=== PATIENT | female | born 1945 | race Caucasian/White ===

== ENCOUNTER 2025-07-20 08:24 | Outpatient (AMB) | payer MEDICARE, SELFPAY ==
--- OUTSIDE RECORDS SUMMARY | 2025-07-20 08:47 | XMS_ITS | Patient Health Record ---
[facility] Address [address] [place] [address] Care Team Providers Care Tank Farm Gauger Name Role Phone Julia Paulina Primary Care Provider Candice Estrada Unavailable [phone] Allergies Allergen (clinical drug ingredient) Drug/Non Drug Allergy documented on EMR Reaction Allergy Type Onset Date Status ciprofloxacin Cipro joint pain Drug Allergy Ac tive Levaquin joint pain Drug Allergy Active codeine Codeine itching Drug Allergy Active formaldehyde Formaldehyde Unknown Drug Allergy A ctive nickel Nickel rash Allergy Active Reason For Referral No Information Medications Medication SIG (Take, Route, Frequency, Duration) Notes Start Date End Date Status Aspirin 81 MG 1 tablet Orally Once a day; Duration: 30 day(s) Not-Taking Desonide 0.05 % 1 application Externally Twice a day Active Calcium + D Active Fish Oil 1200 MG 1 capsule Orally Onc e a day; Duration: 30 day(s) Active Centrum Silver - as directed Orally Active Lori Active Risedronate Sodium 35 MG [address] 30 minutes before the first food or drink, other than water, of the day Orally; Duration: 30 day(s) Active Breo Ellipta 100-25 MCG/INH 1 puff Inhalation Once a day Active Montelukast Sodium 10 MG 1 tablet Orally Once a day; Duration: 30 day(s) Active Atorvastatin Calcium 20 MG 1 tablet Orally Once a day; Duration: 30 day(s) Active Immunizations Vaccine Route Administration Date Status Comme nts COVID-19 Moderna Vaccine Unknown 09/19/2021 Administered First Dose:01/18/2021 Second Dose:02/15/2021 Influenza Unknown 08/05/2021 Administered Social History Tobacco Use: Social History Observation Description Date Details (start date - stop date) Never Smoker NA - NA Tobacco Use/Smoking Question Answer Notes Are you a: nonsmoker Additional Findings: Tobacco Non-User Current no n-smoker Alcohol Screen Question Answer Notes Did you have a drink contain ing alcohol in the past year? Yes How often did you have a dri nk containing alcohol in the past year? Monthly or less (1 point) Points 1 Interpretation Negative Tobacco use other than smoking: Question Answer Notes Are you an other tobacco user? No Plan Of Treatment No Information Insurance Providers Payer Name Payer Address Payer Phone Subscriber Number Group Number Insured Name Patient Relationship to Insured Coverage Start Date Coverage End Date [employer] Medicare [id number] [address] [address] [place] [address] [id number] Anita Coulter Self - patient is the insured Medical (General) History Medical History History ICD Code asthma Back,Hip,and Knee pain Broken bones Cholesterol Cataracts covid-19 Glaucoma Osteoporosis chronic sinusitis Measles Mumps Chicken pox Bone implants/screws cutaneous mycobacterium disc herniation Surgical History Surgery Date(Month/Year) back surgery 12/24/20 left knee replacement 10/29/2017 TLFT [id number] Surgery 10/24/21 cyst removed left ring finger 08/12/2020 right knee replacement 05/13/18 thumb surgery 03/28/18,04/28/21 left knee scope 07/19/11 right knee scope 01/03/10 cataract surgery 05/05,06/04 [place] Neuroma Surgery 08/03 colonoscopy 11/06/18 Cryosurgery 03/17/02 tubal ligation , tonsillectomy 1957 Bone spurs both heels 1962
== END 2025-07-20 12:48 | disposition home or self-care (01) ==
LOC: HO.HMGAL 08:24
PROVIDERS: PCP Internal Medicine; Visit Provider Registered Nurse Emergency
DX: J30.89 Other allergic rhinitis (principal)
CPT/HCPCS: 95117; 95165

== ENCOUNTER 2025-07-29 08:21 | Outpatient (AMB) | payer MEDICARE, SELFPAY ==
--- OUTSIDE RECORDS SUMMARY | 2025-07-29 08:45 | XMS_ITS | Patient Health Record ---
[facility] Address [address] [place] [address] Care Team Providers Care Manager Car Name Role Phone Julia Paulina Primary Care Provider Candice Estrada Unavailable [phone] Allergies Allergen (clinical drug ingredient) Drug/Non Drug [...] Vaccine Route Administration Date Status Comme nts Influenza Unknown 08/05/2021 Administered COVID-19 Moderna Vaccine Unknown 09/19/2021 Administered First Dose:01/18/2021 Second Dose:02/15/2021 Social History Tobacco Use: Social History Observation [...] Date Coverage End Date [employer] Medicare Adv-[id number] [address] [address] [place] [address] [id number] Anita Coulter Self - patient is the [...]
== END 2025-07-29 08:31 | disposition home or self-care (01) ==
PROVIDERS: PCP Internal Medicine; Visit Provider Registered Nurse Emergency
DX: J30.89 Other allergic rhinitis (principal)
CPT/HCPCS: 95117; 95165

== ENCOUNTER 2025-08-03 08:28 | Outpatient (AMB) | payer MEDICARE, SELFPAY ==
--- OUTSIDE RECORDS SUMMARY | 2025-08-03 09:25 | XMS_ITS | Patient Health Record ---
[facility] Address [address] [place] [address] Care Team Providers Care Clinical Genetics Laboratory Chief Name Role Phone Julia Paulina Primary Care Provider Candice Estrada Unavailable [phone] Allergies Allergen (clinical drug ingredient) Drug/Non Drug [...] Date Coverage End Date [employer] Medicare Adv-[id number] [address] [address] [place] [address] [id number] Anita Coulter Self - patient is the [...]
== END 2025-08-03 08:35 | disposition home or self-care (01) ==
LOC: HO.HMGAL 08:28
PROVIDERS: PCP Internal Medicine; Visit Provider Registered Nurse Emergency
DX: J30.89 Other allergic rhinitis (principal)
CPT/HCPCS: 95117; 95165

== ENCOUNTER 2025-08-10 09:21 | Outpatient (AMB) | payer MEDICARE, SELFPAY ==
--- OUTSIDE RECORDS SUMMARY | 2025-08-10 11:04 | XMS_ITS | Patient Health Record ---
[facility] Address [address] [place] [address] Care Team Providers Care Molder Hand Name Role Phone Julia Paulina Primary Care Provider Candice Estrada Unavailable [phone] Allergies Allergen (clinical drug ingredient) Drug/Non Drug [...] Date Coverage End Date [employer] Medicare Adv-[id number] [address] [address] [place] [address] [id number] Anita Coulter Self - patient is the [...]
== END 2025-08-10 09:58 | disposition home or self-care (01) ==
LOC: HO.HMGAL 09:21
PROVIDERS: PCP Internal Medicine; Visit Provider Registered Nurse Emergency
DX: J30.89 Other allergic rhinitis (principal)
CPT/HCPCS: 95117; 95165

== ENCOUNTER 2025-08-31 08:27 | Outpatient (AMB) | payer MEDICARE, SELFPAY ==
--- OUTSIDE RECORDS SUMMARY | 2025-08-31 08:56 | XMS_ITS | Patient Health Record ---
Author Organization [facility] Address [address] [place] [address] Care Team Providers Care Studio Musician Name Role Phone Julia Paulina Primary Care Provider Cadnice Estrada Unavailable [phone] Allergies Allergen (clinical drug ingredient) Drug/Non Drug [...] Date Coverage End Date [employer] Medicare Adv-[id number] [address] [address] [place] [address] [id number] Anita Coulter Self - patient is the [...]
== END 2025-08-31 09:05 | disposition home or self-care (01) ==
LOC: HO.HMGAL 08:27
PROVIDERS: PCP Internal Medicine; Visit Provider Registered Nurse Emergency
DX: J30.89 Other allergic rhinitis (principal)
CPT/HCPCS: 95117; 95165

== ENCOUNTER 2025-09-14 08:16 | Outpatient (AMB) | payer MEDICARE, SELFPAY | END 2025-09-14 08:21 | disposition home or self-care (01) | LOC: HO.HMGAL 08:16 | PROVIDERS: PCP Internal Medicine; Visit Provider Registered Nurse Emergency | DX: J30.89 Other allergic rhinitis (principal) | CPT/HCPCS: 95117; 95165 ==

== ENCOUNTER 2025-09-21 08:49 | Outpatient (AMB) | payer MEDICARE, SELFPAY | END 2025-09-21 08:50 | disposition home or self-care (01) | LOC: HO.HMGAL 08:49 | PROVIDERS: PCP Internal Medicine; Visit Provider Registered Nurse Emergency | DX: J30.89 Other allergic rhinitis (principal) | CPT/HCPCS: 95117; 95165 ==

== ENCOUNTER 2025-09-28 08:19 | Outpatient (AMB) | payer MEDICARE, SELFPAY ==
--- OUTSIDE RECORDS SUMMARY | 2025-09-28 08:34 | XMS_ITS | Patient Health Record ---
[facility] Address [address] [place] [address] Care Team Providers Care Log Haul Chain Feeder Name Role Phone Julia Paulina Primary Care Provider Candice Estrada Unavailable [phone] Allergies Allergen (clinical drug ingredient) Drug/Non Drug [...] Date Coverage End Date [employer] Medicare Adv-[id number] [address] [address] [place] [address] [id number] Anita Coulter Self - patient is the [...]
== END 2025-09-28 08:31 | disposition home or self-care (01) ==
LOC: HO.HMGAL 08:19
PROVIDERS: PCP Internal Medicine; Visit Provider Registered Nurse Emergency
DX: J30.89 Other allergic rhinitis (principal)
CPT/HCPCS: 95117; 95165

== ENCOUNTER 2025-10-05 08:24 | Outpatient (AMB) | payer MEDICARE, SELFPAY ==
--- OUTSIDE RECORDS SUMMARY | 2025-10-05 08:45 | XMS_ITS | Patient Health Record ---
[facility] Address [address] [place] [address] Care Team Providers Care Hydrologic Engineer Name Role Phone Julia Paulina Primary Care Provider Candice Estrada Unavailable [phone] Allergies Allergen (clinical drug ingredient) Drug/Non Drug [...] Date Coverage End Date [employer] Medicare Adv-[id number] [address] [address] [place] [address] [id number] Anita Coulter Self - patient is the [...]
== END 2025-10-05 08:25 | disposition home or self-care (01) ==
LOC: HO.HMGAL 08:24
PROVIDERS: PCP Internal Medicine; Visit Provider Registered Nurse Emergency
DX: J30.89 Other allergic rhinitis (principal)
CPT/HCPCS: 95117; 95165

== ENCOUNTER 2025-10-12 08:25 | Outpatient (AMB) | payer MEDICARE, SELFPAY | END 2025-10-12 08:26 | disposition home or self-care (01) | LOC: HO.HMGAL 08:25 | PROVIDERS: PCP Internal Medicine; Visit Provider Registered Nurse Emergency | DX: J30.89 Other allergic rhinitis (principal) | CPT/HCPCS: 95117; 95165 ==

== ENCOUNTER 2025-10-19 08:28 | Outpatient (AMB) | payer MEDICARE, SELFPAY ==
--- OUTSIDE RECORDS SUMMARY | 2025-10-19 08:35 | XMS_ITS | Patient Health Record ---
[facility] Address [address] [place] [address] Care Team Providers Care Hot Mill Roller Name Role Phone Julia Paulina Primary Care Provider Candice Estrada Unavailable [phone] Allergies Allergen (clinical drug ingredient) Drug/Non Drug [...] Date Coverage End Date [employer] Medicare Adv-[id number] [address] [address] [place] [address] [id number] Anita Coulter Self - patient is the [...]
== END 2025-10-19 08:28 | disposition home or self-care (01) ==
LOC: HO.HMGAL 08:28
PROVIDERS: PCP Internal Medicine; Visit Provider Registered Nurse Emergency
DX: J30.89 Other allergic rhinitis (principal)
CPT/HCPCS: 95117; 95165

== ENCOUNTER 2025-10-26 08:46 | Outpatient (AMB) | payer MEDICARE, SELFPAY ==
--- OUTSIDE RECORDS SUMMARY | 2025-10-26 09:34 | XMS_ITS | Patient Health Record ---
[facility] Address [address] [place] [address] Care Team Providers Care Decision Support Analyst Name Role Phone Julia Paulina Primary Care Provider Candice Estrada Unavailable [phone] Allergies Allergen (clinical drug ingredient) Drug/Non Drug [...] Date Coverage End Date [employer] Medicare Adv-[id number] [address] [address] [place] [address] [id number] Anita Coulter Self - patient is the [...]
== END 2025-10-26 08:46 | disposition home or self-care (01) ==
LOC: HO.HMGAL 08:46
PROVIDERS: PCP Internal Medicine; Visit Provider Registered Nurse Emergency
DX: J30.89 Other allergic rhinitis (principal)
CPT/HCPCS: 95117; 95165

== ENCOUNTER 2025-11-02 08:32 | Outpatient (AMB) | payer MEDICARE, SELFPAY | END 2025-11-02 08:33 | disposition home or self-care (01) | LOC: HO.HMGAL 08:32 | PROVIDERS: PCP Internal Medicine; Visit Provider Registered Nurse Emergency | DX: J30.89 Other allergic rhinitis (principal) | CPT/HCPCS: 95117; 95165 ==

== ENCOUNTER 2025-11-09 08:24 | Outpatient (AMB) | payer MEDICARE, SELFPAY | END 2025-11-09 08:26 | disposition home or self-care (01) | LOC: HO.HMGAL 08:24 | PROVIDERS: PCP Internal Medicine; Visit Provider Registered Nurse Emergency | DX: J30.89 Other allergic rhinitis (principal) | CPT/HCPCS: 95117; 95165 ==

== ENCOUNTER 2025-11-16 08:52 | Outpatient (AMB) | payer MEDICARE, SELFPAY ==
--- OUTSIDE RECORDS SUMMARY | 2025-11-16 09:29 | XMS_ITS | Patient Health Record ---
Author [facility] Address [address] [place] [address] Care Team Providers Care Collections Agent Name Role Phone Julia Paulina Primary Care Provider Candice Estrada Unavailable [phone] Allergies Allergen (clinical drug ingredient) Drug/Non Drug [...] Date Coverage End Date [employer] Medicare Adv-[id number] [address] [address] [place] [address] [id number] Anita Coulter Self - patient is the [...]
== END 2025-11-16 08:53 | disposition home or self-care (01) ==
LOC: HO.HMGAL 08:52
PROVIDERS: PCP Internal Medicine; Visit Provider Registered Nurse Emergency
DX: J30.89 Other allergic rhinitis (principal)
CPT/HCPCS: 95117; 95165